=== PATIENT | female | born 1935 | race African-American/Black ===

== ENCOUNTER 2017-06-18 14:39 | Emergency (ER) | payer MEDICARE, OTHER ==
[~2017-06-18] VITALS: Ht 149.9 cm; Wt 61.0 kg
[~2017-06-18 14:39] MED LIST: FOLI-43 PO; RANI300T4 PO
[2017-06-18] MEDS ORDERED: CLONIDINE 0.2MG TABLET PO ONE (15:15)
[2017-06-18] MEDS ORDERED: METHYLPREDNISOLONE SOD SUCC 125 MG/2 ML VIAL IM ONE (16:45)
[2017-06-18 17:00] VITALS: BP 112/70
== END 2017-06-18 19:00 | disposition home or self-care (01) ==
LOC: ER 19:00
DX: J45.909 Unspecified asthma, uncomplicated (principal); J20.8 Acute bronchitis due to other specified organisms; E78.00 Pure hypercholesterolemia, unspecified; I10 Essential (primary) hypertension; Z90.49 Acquired absence of other specified parts of digestive tract
CPT/HCPCS: 71045; 96372; 99283; J2930

== ENCOUNTER 2018-06-12 21:51 | Emergency (ER) | payer MEDICARE, MEDICAID ==
[~2018-06-12] VITALS: Ht 149.9 cm; Wt 61.0 kg
[2018-06-12] MEDS ORDERED: ACETAMINOPHEN 325MG TABLET PO ONE (23:15)
[2018-06-12 23:21] VITALS: BP 173/83
== END 2018-06-12 23:48 | disposition home or self-care (01) ==
LOC: ER 21:51
DX: R51 Headache (principal); I10 Essential (primary) hypertension; Z98.890 Other specified postprocedural states
CPT/HCPCS: 99282

== ENCOUNTER 2018-08-13 09:24 | Emergency (ER) | payer MEDICARE, MEDICAID ==
[~2018-08-13] VITALS: Ht 162.6 cm; Wt 60.8 kg
[2018-08-13] MEDS ORDERED: SODIUM CHLORIDE 0.9% 1,000 ML IV ONE (09:36)
[2018-08-13 09:45] LABS: BASOPHILS % 1.5 % (0.0-2.0); EOSINOPHILS % 2.6 % (0.0-5.0); HEMATOCRIT. 32.8 % (36.0-48.0); HEMOGLOBIN. 10.4 g/dL (12.0-16.0); LYMPHOCYTES % 37.1 % (20.0-50.0); MEAN CORPUSCULAR HEMOGLOBIN 23.2 pg (28.0-32.0); MEAN PLATELET VOLUME 8.5 fl (7.4-10.4); NEUTROPHILS % 50.8 % (40.0-76.0); PLATELET 158 x1000/uL (130-400); RED BLOOD CELL COUNT 4.49 mill/uL (4.2-5.4); RED CELL DISTRIBUTION WIDTH 15.3 % (11.6-14.6)
[2018-08-13 09:48] LABS: CHLORIDE 107 mEq/L (98-107)
[2018-08-13] MEDS ORDERED: METHYLPREDNISOLONE SOD SUCC 125 MG/2 ML VIAL IV ONE (11:15)
[2018-08-13] MEDS ORDERED: FAMOTIDINE 20MG/2ML VIAL IV ONE (11:15)
[2018-08-13] MEDS ORDERED: DIPHENHYDRAMINE 50MG/ML VIAL IV ONE (12:45)
[2018-08-13] MEDS ORDERED: CLONIDINE 0.1MG TABLET PO SCH (15:30)
[2018-08-13] MEDS ORDERED: DIPHENHYDRAMINE 50MG/ML VIAL IV PRN (16:15)
[2018-08-13] MEDS ORDERED: METHYLPREDNISOLONE SOD SUCC 40 MG/ML VIAL IV SCH (20:00)
[2018-08-13 20:29] VITALS: BP 182/92
[2018-08-13] MEDS ORDERED: FAMOTIDINE 20MG/2ML VIAL IV SCH (21:00)
== END 2018-08-13 20:29 | disposition short-term general hospital (02) ==
LOC: ER 09:24 → EDBEDREQ 13:43 → CANBEDREQ 18:30 → ER 20:29
DX: X58.XXXA Exposure to other specified factors, initial encounter (principal); T78.40XA Allergy, unspecified, initial encounter; T78.3XXA Angioneurotic edema, initial encounter; I10 Essential (primary) hypertension; Z88.8 Allergy status to other drugs, medicaments and biological substances; Z93.3 Colostomy status; Z85.038 Personal history of other malignant neoplasm of large intestine
CPT/HCPCS: 36415; 70450; 71045; 80053; 85025; 85610; 93005; 96374; 96375; 99285; J1200; J2930; J3490; J7030

== ENCOUNTER 2018-11-16 10:56 | Emergency (ER) | payer MEDICARE, MEDICAID ==
[~2018-11-16] VITALS: Ht 160 cm; Wt 59.0 kg
[2018-11-16] MEDS ORDERED: TRAMADOL 50MG TABLET PO ONE (11:45)
[2018-11-16 13:35] VITALS: BP 141/85
== END 2018-11-16 13:45 | disposition home or self-care (01) ==
LOC: ER 10:56
DX: M79.642 Pain in left hand (principal); I10 Essential (primary) hypertension; Z88.8 Allergy status to other drugs, medicaments and biological substances
CPT/HCPCS: 29125; 73110; 73130; 99283

== ENCOUNTER 2023-01-20 13:40 | Emergency (ER) | payer MEDICARE, MEDICAID ==
[~2023-01-20] VITALS: Ht 149.9 cm; Wt 50.8 kg
[2023-01-20 14:01] VITALS: BP 171/82; PULSE 87; RESP 16; TEMP 98.1; O2SAT 98
[2023-01-20] MEDS ORDERED: NAPR-677 MT (17:22)
[2023-01-20] MEDS ORDERED: NAPROXEN 250MG TABLET PO ONE (17:30)
== END 2023-01-20 18:32 | disposition home or self-care (01) ==
LOC: ER 13:56
DX: M79.18 Myalgia, other site (principal); I10 Essential (primary) hypertension; Z88.8 Allergy status to other drugs, medicaments and biological substances; Z98.890 Other specified postprocedural states
CPT/HCPCS: 71101; 99283